=== PATIENT | male | born 1995 | race Caucasian/White ===

== ENCOUNTER 2017-11-15 07:54 | Emergency (ER) | payer MEDICAID ==
[2017-11-15] MEDS: LIDOCAINE 1% (MDV) 20 ML INJ SC (08:31)
[2017-11-15] MEDS: DIPHTH/TET/ACEL PERTUSS (ADULT) 0.5 ML VIAL IM* (08:31)
== END 2017-11-15 09:34 | disposition home or self-care (01) ==
LOC: FTE 07:54
DX: S61.112A Laceration without foreign body of left thumb with damage to nail, initial encounter (principal); W26.8XXA Contact with other sharp object(s), not elsewhere classified, initial encounter; Y92.89 Other specified places as the place of occurrence of the external cause; Z23 Encounter for immunization
CPT/HCPCS: 12002; 90471; 90715; 99283-25

== ENCOUNTER 2017-11-19 09:05 | Emergency (ER) | payer MEDICAID | END 2017-11-19 09:58 | disposition home or self-care (01) | LOC: FTE 09:05 | DX: Z48.01 Encounter for change or removal of surgical wound dressing (principal); S61.012D Laceration without foreign body of left thumb without damage to nail, subsequent encounter; W26.8XXD Contact with other sharp object(s), not elsewhere classified, subsequent encounter | CPT/HCPCS: 99281; Z7502 ==